=== PATIENT | female | born 2000 | race Two or more races ===

== ENCOUNTER 2021-01-29 12:23 | Emergency (ER) | payer OTHER, SELFPAY ==
[2021-01-29 12:39] VITALS: BP 125/72; PULSE 90; RESP 16; TEMP 36.3; O2SAT 99; BMI 19.1
--- NOTE | 2021-01-29 14:00 | ED_ITS ---
HPI - General Adult General Chief complaint: Abdominal Pain Stated complaint: abd pain, headache, fever, body ache Time Seen by Provider: 01/29/21 13:40 Source: patient Mode of arrival: ambulatory Limitations: no limitations History of Present Illness HPI narrative: 20-year-old female who presents emergency department for evaluation of headache, abdominal pain, nausea, vomiting body aches, and fatigue. Patient states she has been sick for approximately 2 days. She complains of epigastric pain which she describes as ?punching sensation and ?that is been constant in 8/10 at its worst. She states that she has had constant nausea with 2-4 episodes of vomiting per day, she denies any blood in the emesis. She states that she is having total body aches, she has had chills but no fever. She noted urinary frequency but no dysuria. She is also complaining of a headache, she points to the back of her neck when she is asked to describe the headache. She describes as a constant, throbbing sensation which is 6/10 at its worst. The patient has not been vaccinated for COVID-19. She is not aware of any known COVID-19 exposure. Related Data Previous Rx's Medication Instructions Recorded ondansetron 4 mg disintegrating 4 mg PO Q6-8H PRN #14 tab 01/29/21 tablet Allergies Allergy/AdvReac Type Severity Reaction Status Date / Time diphenhydramine Allergy Rash Verified 01/29/21 14:01 [From Benadryl] [facility] Past Medical History [facility] Narrative: Past medical history: G3, P3, she had a vaginal delivery 7 months prior. Past surgical history: None. Social history:. The patient smokes 1-2 cigarettes per day x1 year. She states that she drinks a pint of indoo.rs twice a week. She denies drug use. Social History Social History Alcohol intake: current Alcohol intake frequency: holidays/special occasions only Patient Tobacco Use Status: Never used Tobacco Use of substances other than those prescribed or required for medical reasons: No Advance Directives: Yes Advance Directives Information Provided: Yes Advance Directives on File: No Patient : No Physical Exam Vital Signs: Vital Signs: Last Vital Signs Temp 98.5 F 01/29/21 15:45 Pulse 72 01/29/21 15:45 Resp 16 01/29/21 15:45 BP 105/61 01/29/21 15:45 Pulse Ox 98 01/29/21 15:45 Body Mass Index 19.1 HENMT: Head: Yes normal to inspection, Yes normocephalic and Yes atraumatic Ears: external ears normal General nose exam: Normal external nose present Face and sinus: Yes normal facial exam Mouth: Normal oral and palatal mucosa present Throat: Yes posterior oropharynx normal Eyes: General: appearance normal, both eyes and all related structures Pupils: Equal, round and reactive pupils present Neck: Neck: Yes normal visual inspection, Yes no lymphadenopathy, Yes trachea midline and Yes supple Chest: Chest palpation & inspection: normal inspection of the chest and normal palpation of entire chest wall Resp: Effort & Inspection: normal respiratory effort and able to speak in complete sentences Auscultation: clear to auscultation bilaterally Cardio: Rate: regular rate Rhythm: regular rhythm Heart sounds: S1 normal heart sound present, S2 normal heart sound present and no murmurs GI: Inspection: Yes normal to inspection Palpation (GI): Soft to palpation, Tenderness to palpation present (GI) in the epigastrum (Moderate) and no guarding Auscultation: normal bowel sounds : General: Yes no CVA tenderness Back/Spine/Pelvis: Back: no CVA tenderness Skin: General skin exam: no rashes or lesions noted Neuro: Cranial nerves: Yes CN's II-XII intact bilaterally and Yes Equal, round and reactive pupils present Cognition (Neuro): normal cognition Motor exam (neuro): 5/5 motor strength present throughout Extrem: General: Yes normal to inspection Psych: Appearance: grossly normal Speech and movement: Normal speech and movement present Affect: normal affect Attitude: cooperative Thought process: Normal thought process present Thought content: Normal thought content present Course Course Course Narrative: 20-year-old female who presents emergency department for evaluation of headache, abdominal pain, nausea, vomiting, body aches fatigue and dysuria x2 days. Patient's initial vital signs were normal. Physical examination revealed moderate epigastric pain otherwise unremarkable. Patient's presentation is consistent with a viral syndrome. I did order laboratory evaluation to include CBC, CMP, lipase, urinalysis, urine , COVID-19 test. Patient was ordered to get Toradol 30 mg IV for pain, Zofran 4 mg IV for her nausea vomiting and normal saline IV x1 L. 1609: The patient's laboratory evaluation was unremarkable. Urinalysis was negative. COVID-19 test was negative. This time, I suspect patient has acute viral illness. The patient has only been sick for 2 days and COVID-19 is still a possibility and I did discuss this with her. The patient will be discharged home with verbal and printed instructions. She was advised to self isolate for 7 days. Medical Decision Making Lab Data Result diagrams: 01/29/21 14:33 01/29/21 14:33 Labs: Lab Results 01/29/21 01/29/21 01/29/21 Range/Units 14:17 14:27 14:28 WBC (4.8-10.8) X10*3/uL RBC (4.20-5.50) X10*6/uL Hgb (12.0-16.0) g/dl Hct (37-47) % MCV (80-98) fL MCH (27.0-33.0) pg MCHC (31.0-35.0) g/dl RDW (11.0-16.0) % Plt Count (160-400) X10*3/uL MPV (9.4-12.3) fL Immature Gran % (Auto) (0.0-0.4) % Neut % (Auto) (45-73) % Lymph % (Auto) (20-40) % [place] % (Auto) (2-11) % Eos % (Auto) (0-4) % Baso % (Auto) (0-2) % Lymph # (Auto) (1.2-4.9) X10*3/uL [place] # (Auto) (0.1-1.2) X10*3/uL Eos # (Auto) (0.0-0.4) X10*3/uL Baso # (Auto) (0.0-0.2) X10*3/uL Abs Immat Gran (auto) (0.00-0.03) X10*3/uL Absolute Neuts (auto) (2.0-8.3) X10*3/uL Absolute Nucleated RBC (0.0-0.012) X10*3/uL Nucleated RBC % (auto) (0.0-0.2) /100WBC Sodium (135-145) mmol/L Potassium (3.3-5.1) mmol/L Chloride (96-108) mmol/L Carbon Dioxide (22-29) mmol/L Anion Gap (12-20) BUN (9-16) mg/dL Creatinine (0.5-1.4) mg/dL Estim Creat Clear Calc Estimated GFR Random Glucose (60-115) mg/dL Calcium (8.4-10.2) mg/dL Total Bilirubin (0.0-1.0) mg/dL AST (5-31) U/L ALT (0-31) U/L Alkaline Phosphatase (39-117) U/L Total Protein (6.5-8.0) g/dL Albumin (3.5-5.0) g/dL Lipase (8-78) U/L Urine Color YELLOW Urine Appearance HAZY Urine pH 7.5 (5.0-8.0) Ur Specific [place] 1.010 (1.005-1.025) Urine Protein 2+ H (NEG-TRACE) MG/DL Urine Glucose (UA) NEG (NEG) MG/DL Urine Ketones 5 (NEG) MG/DL Urine Blood 3+ H (NEG) Urine Nitrite NEG (NEG) Ur Leukocyte Esterase NEG (NEG) Urine RBC 76-150 H (0) /HPF Urine WBC 0-2 (0-4) /HPF Ur Squamous Epith Cells 4+ /LPF Urine Bacteria TRACE /LPF Urine Mucus 1+ /LPF Urine Test NEGATIVE (NEGATIVE) COVID-19 (HUSEYIN) Negative (Negative) COVID-19 Clin Com See Note 01/29/21 01/29/21 01/29/21 Range/Units 14:33 14:33 14:33 WBC 6.8 (4.8-10.8) X10*3/uL RBC 4.57 (4.20-5.50) X10*6/uL Hgb 12.2 (12.0-16.0) g/dl Hct 37.2 (37-47) % MCV 81.4 (80-98) fL MCH 26.7 L (27.0-33.0) pg MCHC 32.8 (31.0-35.0) g/dl RDW 12.1 (11.0-16.0) % Plt Count 232 (160-400) X10*3/uL MPV 10.4 (9.4-12.3) fL Immature Gran % (Auto) 0.3 (0.0-0.4) % Neut % (Auto) 77.3 H (45-73) % Lymph % (Auto) 13.7 L (20-40) % [place] % (Auto) 6.8 (2-11) % Eos % (Auto) 1.8 (0-4) % Baso % (Auto) 0.1 (0-2) % Lymph # (Auto) 0.9 L (1.2-4.9) X10*3/uL [place] # (Auto) 0.5 (0.1-1.2) X10*3/uL Eos # (Auto) 0.1 (0.0-0.4) X10*3/uL Baso # (Auto) 0.0 (0.0-0.2) X10*3/uL Abs Immat Gran (auto) 0.02 (0.00-0.03) X10*3/uL Absolute Neuts (auto) 5.2 (2.0-8.3) X10*3/uL Absolute Nucleated RBC 0.000 (0.0-0.012) X10*3/uL Nucleated RBC % (auto) 0.0 (0.0-0.2) /100WBC Sodium 139 (135-145) mmol/L Potassium 4.1 (3.3-5.1) mmol/L Chloride 105 (96-108) mmol/L Carbon Dioxide 23 (22-29) mmol/L Anion Gap 15 (12-20) BUN 11 (9-16) mg/dL Creatinine 0.79 (0.5-1.4) mg/dL Estim Creat Clear Calc 92.0 Estimated GFR > 60 Random Glucose 101 (60-115) mg/dL Calcium 9.3 (8.4-10.2) mg/dL Total Bilirubin 0.9 (0.0-1.0) mg/dL AST 17 (5-31) U/L ALT 8 (0-31) U/L Alkaline Phosphatase 60 (39-117) U/L Total Protein 7.4 (6.5-8.0) g/dL Albumin 4.5 (3.5-5.0) g/dL Lipase 18 (8-78) U/L Urine Color Urine Appearance Urine pH (5.0-8.0) Ur Specific [place] (1.005-1.025) Urine Protein (NEG-TRACE) MG/DL Urine Glucose (UA) (NEG) MG/DL Urine Ketones (NEG) MG/DL Urine Blood (NEG) Urine Nitrite (NEG) Ur Leukocyte Esterase (NEG) Urine RBC (0) /HPF Urine WBC (0-4) /HPF Ur Squamous Epith Cells /LPF Urine Bacteria /LPF Urine Mucus /LPF Urine Test (NEGATIVE) COVID-19 (HUSEYIN) (Negative) COVID-19 Clin Com Discharge Plan Discharge Clinical Impression: Gastritis, Viral illness Patient Disposition: Home, Self-Care Instructions: Viral Syndrome (ED) Additional Instructions: Your blood work today was normal. Your COVID-19 test was negative. Sometimes, the COVID-19 test can be falsely negative especially if you have only been sick for 2 days. Usually the test is more diagnostic if your sick for at least 4-7 days. I recommend that you stay home for at least 7 days and self isolate, if you continue to have symptoms after 7 days or your symptoms get worse then you need a repeat COVID-19 test. If you developed signs of pneumonia such as fever, shaking chills, chest pain that is worse with breathing, shortness of breath shortness of breath when he exerts herself then you should return to the emergency department or see your doctor for re-evaluation Take ibuprofen 200 mg pills, 3 pills every 6 hours as needed for pain. Take Tylenol (acetaminophen) 500 mg pills, 2 pills every 4 to 6 hours as needed for pain. Take Zofran ODT 4 mg pills, 1 pill dissolved in your mouth every 8 hours as needed for nausea and vomiting. Follow-up with your doctor in 2 days. Please return to the emergency department if your symptoms get worse or if you develop any symptoms that are concerning to you. Prescriptions: New ondansetron 4 mg tablet,disintegrating 4 mg PO Q6-8H PRN (Reason: nausea and vomiting) Qty: 14 RF: 0
[2021-01-29 14:20] VITALS: BP 110/73; PULSE 76; RESP 14; TEMP 36.9; O2SAT 95
[2021-01-29 14:37] LABS: MANUAL DIFF FLAG NO
[2021-01-29 14:40] LABS: Basophils Percent Auto 0.1 % (0-2); Eosinophils Absolute Auto 0.1 X10*3/uL (0.0-0.4); Eosinophils Percent Auto 1.8 % (0-4); Hematocrit 37.2 % (37-47); Hemoglobin 12.2 g/dl (12.0-16.0); Imm Gran Abs Auto 0.02 X10*3/uL (0.00-0.03); Imm Gran Pct Auto 0.3 % (0.0-0.4); Lymphocytes Absolute Auto 0.9 X10*3/uL (1.2-4.9); Lymphocytes Percent Auto 13.7 % (20-40); Mean Corpuscular HGB Conc 32.8 g/dl (31.0-35.0); Mean Corpuscular Hemoglobin 26.7 pg (27.0-33.0); Mean Corpuscular Volume 81.4 fL (80-98); Mean Platelet Volume 10.4 fL (9.4-12.3); Monocytes Absolute Auto 0.5 X10*3/uL (0.1-1.2); Monocytes Percent Auto 6.8 % (2-11); Neutrophils Absolute Auto 5.2 X10*3/uL (2.0-8.3); Neutrophils Percent Auto 77.3 % (45-73); Platelet Count 232 X10*3/uL (160-400); Red Blood Count 4.57 X10*6/uL (4.20-5.50); Red Cell Distribution Width 12.1 % (11.0-16.0); White Blood Count 6.8 X10*3/uL (4.8-10.8)
[2021-01-29 14:42] LABS: Appearance Urine HAZY; Color Urine YELLOW; Glucose Urine UA NEG (NEG); Leukocyte Esterase Urine NEG (NEG); Nitrite Urine NEG (NEG); PH 7.5 (5.0-8.0); UACC Culture Trigger NO; Urine Blood 3+ (NEG); Urine Ketones 5 MG/DL (NEG); Urine Protein 2+ MG/DL (NEG-TRACE)
[2021-01-29 14:43] LABS: UPreg QC Valid YES; Urine Pregnancy NEGATIVE (NEGATIVE)
[2021-01-29] MEDS: 0.9 % Sodium Chloride 1,000 ML 999 ML IV (14:46)
[2021-01-29] MEDS: ondansetron HCL 4 MG/2 ML VIAL IVPUSH (14:48)
[2021-01-29 14:49] LABS: WBC Urine 0-2 /HPF (0-4)
[2021-01-29 14:50] LABS: Bacteria Urine TRACE /LPF; Mucus Urine 1+ /LPF; Squamous Epithelial Cell Urine 4+ /LPF
[2021-01-29] MEDS: Ketorolac Tromethamine 15 MG/ML VIAL 30 MG IVPUSH (14:52)
[2021-01-29 14:59] LABS: COVID-19 Test Negative (Negative)
[2021-01-29 15:02] LABS: Lipase 18 U/L (8-78)
[2021-01-29 15:08] LABS: Alanine Aminotransferase 8 U/L (0-31); Albumin Level 4.5 g/dL (3.5-5.0); Alkaline Phosphatase 60 U/L (39-117); Anion Gap 15 (12-20); Aspartate Amino Transferase 17 U/L (5-31); Bilirubin Total 0.9 mg/dL (0.0-1.0); Blood Urea Nitrogen 11 mg/dL (9-16); Calcium 9.3 mg/dL (8.4-10.2); Carbon Dioxide 23 mmol/L (22-29); Chloride 105 mmol/L (96-108); Estimated Glomerular Filt Rate > 60; Glucose Random 101 mg/dL (60-115); Potassium 4.1 mmol/L (3.3-5.1); Sodium 139 mmol/L (135-145); Total Protein 7.4 g/dL (6.5-8.0)
[2021-01-29 15:45] VITALS: BP 105/61; PULSE 72; RESP 16; TEMP 36.9; O2SAT 98
--- NOTE | 2021-01-29 16:40 | PC.NURSE ---
Pt alert and oriented x4, calm and cooperative. Pt denies pain, denies N/V. Pt tolerated IV meds well. Pt educated on dc and stated an understanding. IV removed. Vitals stable. pt ambulated out of ER to private car.
== END 2021-01-29 16:41 | disposition home or self-care (01) ==
PROVIDERS: Emergency Provider Emergency Medicine Emergency Medical Services
DX: K29.70 Gastritis, unspecified, without bleeding (principal); B34.9 Viral infection, unspecified; R51.9 Headache, unspecified; M79.10 Myalgia, unspecified site; Z20.822 Contact with and (suspected) exposure to COVID-19
CPT/HCPCS: 36415; 80053; 81001; 81025; 83690; 85025; 87635; 96361; 96374; 96375; 99284; 99285; J1885; J2405

== ENCOUNTER 2022-04-03 13:53 | Emergency (ER) | payer SELFPAY ==
--- NOTE | ~2022-04-03 | US_ITS ---
EXAMINATION: ULTRASOUND OB LIMITED CLINICAL INFORMATION: Abdominal pain. Patient is 22 weeks . COMPARISON: None TECHNIQUE: Limited OB ultrasound FINDINGS: There is a single viable intrauterine fetus in cephalic position. heart rate is 135 bpm. Amniotic fluid volume is subjectively normal. There is an anterior placenta that is normal-appearing. The cervix appears closed. Maternal ovary/pelvis is not imaged. US/US OB limited IMPRESSION: Single viable intrauterine in cephalic position. Normal-appearing anterior placenta.
--- NOTE | 2022-04-03 14:04 | ED.ABDPAIN ---
HPI - Abdominal Pain General Chief Complaint: Abdominal Pain Stated Complaint: abd pain Related Data Previous Rx's Medication Instructions Recorded ondansetron 4 mg disintegrating 4 mg PO Q6-8H PRN nausea and 01/29/21 tablet vomiting #14 tabs Allergies Allergy/AdvReac Type Severity Reaction Status Date / Time diphenhydramine Allergy Rash Verified 01/29/21 14:01 [From Benadryl] [facility] Social History Social History Alcohol intake: current Alcohol intake frequency: holidays/special occasions only Patient Tobacco Use Status: Never used Tobacco Advance Directives: No Advance Directives Information Provided: No Physical Exam ED Vital Signs: BMI result Body Mass Index 21.6 Course Course Course Narrative: This is a rapid medical exam. Deferred additional HPI, ROS, PE to primary provider. 21 yo female healthy here with lower abdominal cramping x weeks. NO vaginal bleeding. Currently 22 weeks , CYNDI 08/06. Moved [facility] from [facility]. No care. . Will need labs, UA, FHT, US. VSS Medical Decision Making Lab Data Result Diagrams: 04/03/22 14:35 04/03/22 14:35 Labs: Lab Results 04/03/22 04/03/22 04/03/22 Range/Units 14:35 14:35 14:35 WBC 9.9 (4.8-10.8) X10*3/uL RBC 3.66 L (4.20-5.50) X10*6/uL Hgb 10.3 L (12.0-16.0) g/dl Hct 30.9 L (37.0-47.0) % MCV 84.4 (80.0-98.0) fL MCH 28.1 (27.0-33.0) pg MCHC 33.3 (31.0-35.0) g/dl RDW 12.1 (11.0-16.0) % Plt Count 239 (160-400) X10*3/uL MPV 10.3 (9.4-12.3) fL Immature Gran % (Auto) 0.5 H (0.0-0.4) % Neut % (Auto) 74.7 H (45-73) % Lymph % (Auto) 16.3 L (20-40) % [place] % (Auto) 5.2 (2-11) % Eos % (Auto) 3.0 (0-4) % Baso % (Auto) 0.3 (0-2) % Lymph # (Auto) 1.6 (1.2-4.9) X10*3/uL [place] # (Auto) 0.5 (0.1-1.2) X10*3/uL Eos # (Auto) 0.3 (0.0-0.4) X10*3/uL Baso # (Auto) 0.0 (0.0-0.2) X10*3/uL Abs Immat Gran (auto) 0.05 H (0.00-0.03) X10*3/uL Absolute Neuts (auto) 7.4 (2.0-8.3) x10*3/uL Absolute Nucleated RBC 0.000 (0.0-0.012) X10*3/uL Nucleated RBC % (auto) 0.0 (0.0-0.2) /100WBC Sodium 137 (135-145) mmol/L Potassium 4.1 (3.3-5.1) mmol/L Chloride 108 (96-108) mmol/L Carbon Dioxide 22 (22-29) mmol/L Anion Gap 11 L (12-20) BUN 7 L (9-16) mg/dL Creatinine 0.60 (0.5-1.4) mg/dL Estim Creat Clear Calc 131.2 Estimated GFR > 60 Random Glucose 79 (60-115) mg/dL Calcium 8.9 (8.4-10.2) mg/dL Total Bilirubin 0.3 (0.0-1.0) mg/dL Direct Bilirubin < 0.2 (0.0-0.5) mg/dL AST 13 (5-31) U/L ALT 6 (0-31) U/L Alkaline Phosphatase 62 (39-117) U/L Total Protein 6.4 L (6.5-8.0) g/dL Albumin 3.6 (3.5-5.0) g/dL Beta HCG, Quant 40606 mIU/mL COVID-19 (HUSEYIN) Negative (Negative) COVID-19 Clin Com See Note Discharge Plan Discharge Clinical Impression: Abdominal pain Patient Disposition: Elopement Prescriptions: No Action ondansetron 4 mg tablet,disintegrating 4 mg PO Q6-8H PRN (Reason: nausea and vomiting) Qty: 14 0RF Interventions: ED Discharge Assessment Last Done: 04/03/22 20:28 Discharge Date/Time: 04/03/22 20:33
[2022-04-03 14:05] VITALS: BP 98/32; PULSE 82; RESP 18; TEMP 36.9; O2SAT 98; BMI 21.6
[2022-04-03 14:40] LABS: MANUAL DIFF FLAG NO
[2022-04-03 14:49] LABS: Basophils Percent Auto 0.3 % (0-2); Eosinophils Absolute Auto 0.3 X10*3/uL (0.0-0.4); Hematocrit 30.9 % (37.0-47.0); Hemoglobin 10.3 g/dl (12.0-16.0); Imm Gran Abs Auto 0.05 X10*3/uL (0.00-0.03); Imm Gran Pct Auto 0.5 % (0.0-0.4); Lymphocytes Absolute Auto 1.6 X10*3/uL (1.2-4.9); Lymphocytes Percent Auto 16.3 % (20-40); Mean Corpuscular HGB Conc 33.3 g/dl (31.0-35.0); Mean Corpuscular Hemoglobin 28.1 pg (27.0-33.0); Mean Corpuscular Volume 84.4 fL (80.0-98.0); Mean Platelet Volume 10.3 fL (9.4-12.3); Monocytes Absolute Auto 0.5 X10*3/uL (0.1-1.2); Monocytes Percent Auto 5.2 % (2-11); Neutrophils Absolute Auto 7.4 x10*3/uL (2.0-8.3); Neutrophils Percent Auto 74.7 % (45-73); Platelet Count 239 X10*3/uL (160-400); Red Blood Count 3.66 X10*6/uL (4.20-5.50); Red Cell Distribution Width 12.1 % (11.0-16.0); White Blood Count 9.9 X10*3/uL (4.8-10.8)
[2022-04-03 14:55] LABS: COVID-19 Test Negative (Negative); IDNOW Serial# 9DB6401D
[2022-04-03 16:08] LABS: Alanine Aminotransferase 6 U/L (0-31); Albumin Level 3.6 g/dL (3.5-5.0); Alkaline Phosphatase 62 U/L (39-117); Anion Gap 11 (12-20); Aspartate Amino Transferase 13 U/L (5-31); Bilirubin Direct < 0.2 mg/dL (0.0-0.5); Bilirubin Total 0.3 mg/dL (0.0-1.0); Blood Urea Nitrogen 7 mg/dL (9-16); Calcium 8.9 mg/dL (8.4-10.2); Carbon Dioxide 22 mmol/L (22-29); Chloride 108 mmol/L (96-108); Creatinine Clr Calc Pharmacy 131.2; Estimated Glomerular Filt Rate > 60; Glucose Random 79 mg/dL (60-115); Potassium 4.1 mmol/L (3.3-5.1); Sodium 137 mmol/L (135-145); Total Protein 6.4 g/dL (6.5-8.0)
[2022-04-03 16:40] LABS: HCG Quantitative 15687 mIU/mL
--- NOTE | 2022-04-03 20:16 | PC.NURSE ---
pt called to triage for re-assessment. no answer 2016
== END 2022-04-03 20:33 | disposition left against medical advice (07) ==
PROVIDERS: Nurse Practitioner Family; Emergency Provider Emergency Medicine
DX: O26.892 Other specified pregnancy related conditions, second trimester (principal); R10.9 Unspecified abdominal pain; Z3A.22 22 weeks gestation of pregnancy; Z20.822 Contact with and (suspected) exposure to COVID-19
CPT/HCPCS: 76815; 80048; 80076; 84702; 85025; 87635; 99282; 99284

== ENCOUNTER 2022-05-15 11:21 | Emergency (ER) | payer MEDICAID, SELFPAY ==
[2022-05-15 11:28] VITALS: BP 102/53; PULSE 81; RESP 14; TEMP 36.9; O2SAT 99
--- NOTE | 2022-05-15 11:30 | MHC.EDTECH ---
@11:30AM CALL PLACED TO [facility] PT TX LINE FOR GLOBAL REGULATORY LEAD @ [facility] ACNO REQUEST BARBARA ANSWERS, TAKES PT INFO, THEN STATES SHE WILL HAVE A GLOBAL REGULATORY LEAD CALL US BACK
--- NOTE | 2022-05-15 11:38 | PC.NURSE ---
HR strong and regular from 140s-150s
--- NOTE | 2022-05-15 11:39 | MHC.EDTECH ---
@[id number] [facility] CALLED ABOUT THIS PT FOR IMPENDING TRANSPORT FOR THIS PT DAVID ANSWERS AND SAYS HE WILL SEND AN ALS WHEN THIS PT IS ACCEPTED @[id number] BARBARA FROM THE [facility] PT TX LINE CALLS BACK FOR RACHAEL CANO TAKES OVER CALL RIGHT AWAY
[2022-05-15 11:43] LABS: MANUAL DIFF FLAG NO
--- NOTE | 2022-05-15 11:46 | ED.GENADULT ---
HPI - General Adult General Chief complaint: General Medical <JEFFREY Saul - Last Filed: 05/15/22 12:34> Stated complaint: water broke <JEFFREY Saul - Last Filed: 05/15/22 12:34> Time Seen by Provider: 05/15/22 11:30 <JEFFREY Saul - Last Filed: 05/15/22 12:34> Source: patient <JEFFREY Saul - Last Filed: 05/15/22 12:34> Mode of arrival: ambulatory <JEFFREY Saul - Last Filed: 05/15/22 12:34> Limitations: no limitations <JEFFREY Saul - Last Filed: 05/15/22 12:34> History of Present Illness HPI narrative: 21 yo female currently 30 weeks gestation with CYNDI of 07/05/22 presents to the ER for evaluation after her water broke spontaneously this morning at 11:00. She states she felt a contraction and then she felt leakage of amniotic fluid. It soaked her clothing. She came to the ER for further evaluation. She reports some increased abdominal pressure. She denies any active contractions. She is from [place] and is in the area visiting. She did not have full care due to lack of insurance. She states she last had an ultrasound done in February, was a normal growth scan. She reports history of several labors, her 6-year-old, 4-year-old, 2-year-old were all delivered between 32 and 34 weeks gestation. She reports no prolonged NICU stays or other complications. She denies any history of preeclampsia. No fevers. She still complains of amniotic fluid leaking. <JEFFREY Saul - Last Filed: 05/15/22 12:34> MD complaint: Water broke <JEFFREY Saul - Last Filed: 05/15/22 12:34> Onset (ago): minute(s) (30) <JEFFREY Saul - Last Filed: 05/15/22 12:34> Radiation: non-radiation <JEFFREY Saul - Last Filed: 05/15/22 12:34> Severity: mild <JEFFREY Saul - Last Filed: 05/15/22 12:34> Severity scale (1-10): 3 <JEFFREY Saul - Last Filed: 05/15/22 12:34> Quality: dull <JEFFREY Saul - Last Filed: 05/15/22 12:34> Pain Consistency: intermittent <JEFFREY Saul Last Filed: 05/15/22 12:34> Relieving factors: none <JEFFREY Saul Last Filed: 05/15/22 12:34> Exacerbating factors: none <JEFFREY Saul - Last Filed: 05/15/22 12:34> Associated symptoms: denies other symptoms <JEFFREY Saul - Last Filed: 05/15/22 12:34> Treatments prior to arrival: none <JEFFREY Saul Last Filed: 05/15/22 12:34> Related Data Home medications: Previous Rx's Medication Instructions Recorded ondansetron 4 mg disintegrating 4 mg PO Q6-8H PRN nausea and 01/29/21 tablet vomiting #14 tabs <JEFFREY Saul - Last Filed: 05/15/22 12:34> Allergies/adverse reactions: Allergies Allergy/AdvReac Type Severity Reaction Status Date / Time diphenhydramine Allergy Rash Verified 01/29/21 14:01 [From Benadryl] <JEFFREY Saul - Last Filed: 05/15/22 12:34> Review of Systems Review of Systems: Yes all other systems are reviewed and are negative <JEFFREY Saul - Last Filed: 05/15/22 12:34> [facility] Social History Social History: Social History Alcohol intake: never Patient Tobacco Use Status: Never used Tobacco Smoked in Last 30 Days: No Use of substances other than those prescribed or required for medical reasons: No Advance Directives: No Patient : Yes <JEFFREY Saul Last Filed: 05/15/22 12:34> Physical Exam ED Vital Signs: Vital Signs - 24 hr 05/15/22 11:28 Temperature 98.5 F Pulse Rate 81 Respiratory Rate 14 Blood Pressure 102/53 L Pulse Oximetry 99 Oxygen Delivery Method Room Air BMI result Body Mass Index 20.0 <JEFFREY Saul - Last Filed: 05/15/22 12:34> Vital Signs - 24 hr 05/15/22 11:28 Temperature 98.5 F Pulse Rate 81 Respiratory Rate 14 Blood Pressure 102/53 L Pulse Oximetry 99 Oxygen Delivery Method Room Air BMI result Body Mass Index 20.0 <Graeme Alva MD - Last Filed: 05/15/22 13:28> Appearance: Alert. Oriented X3. No acute distress. Eyes: Pupils equal, round and reactive to light. ENT: Pharynx normal. Neck: Normal inspection. Neck supple. CVS: Normal heart rate and rhythm. Pulses normal. Respiratory: No respiratory distress. Breath sounds normal. Abdomen: gravid uterus to midpoint umbilicus and subziphoid. active +BS x4 Pelvic: Normal inspection of the external genitalia, on sterile speculum examination there is a moderate amount of clear yellow amniotic fluid present in the vaginal vault, cervix is not effaced, cervical os 0.5 cm dilated. Skin: Skin warm and dry. Normal skin color. Normal skin turgor. No rashes. Extremities: No lower extremity edema. Neuro: Oriented X 3. No motor deficit. No sensory deficit. <JEFFREY Saul - Last Filed: 05/15/22 12:34> Course Course Course Narrative: 21-year-old female presents to the ER after her water broke at 30 weeks gestation. Spoke with , [facility] - recommending immediate transfer to [facility]. FHT 140-150 Sterile speculum examination does not reveal any significant cervical dilatation or effacement. <JEFFREY Saul - Last Filed: 05/15/22 12:34> Reevaluation(s) Reevaluation #1: Spoke with doctor at 2 - recommending 12 g betamethasone injection, 2 g ampicillin, 4 g magnesium bolus, 20 mg of nifedipine for tocolysis, 1 gm PO azithromycin. Antibiotics and magnesium have been ordered. We do not have betamethasone or nifedipine on formulary. <JEFFREY Saul - Last Filed: 05/15/22 12:34> Reevaluation #2: 12 mg betamethasone given IM. transfer to [facility] now. US showing good movement, head down. HR 150s <JEFFREY Saul - Last Filed: 05/15/22 12:34> Medications Administered Discontinued Medications Generic Name Dose Route Start Last Admin Trade Name Freq PRN Reason Stop Dose Admin Azithromycin 1,000 mg 05/15/22 11:45 05/15/22 11:56 Azithromycin 500 Mg Tablet PO 05/15/22 11:46 1,000 mg ONCE ONE Administration Betamethasone Acet/Betameth SodPhos 12 mg 05/15/22 12:15 05/15/22 12:12 Betamet Acet/Betamet Na Ph 30 Mg/5 Ml Vial IM 05/15/22 12:16 12 mg ONCE ONE Administration Ampicillin Sodium 2 gm/ Sodium 100 mls @ 100 mls/hr 05/15/22 11:41 05/15/22 12:05 Chloride IV 05/15/22 12:40 100 mls/hr ONCE ONE Administration Magnesium Sulfate 4 gm in 50 mls @ 150 mls/hr 05/15/22 11:41 05/15/22 12:17 Magnesium Sulfate/H2o IV 05/15/22 12:00 Infused ONCE ONE Infusion <JEFFREY Saul - Last Filed: 05/15/22 12:34> Medications Administered Discontinued Medications Generic Name Dose Route Start Last Admin Trade Name Freq PRN Reason Stop Dose Admin Azithromycin 1,000 mg 05/15/22 11:45 05/15/22 11:56 Azithromycin 500 Mg Tablet PO 05/15/22 11:46 1,000 mg ONCE ONE Administration Betamethasone Acet/Betameth SodPhos 12 mg 05/15/22 12:15 05/15/22 12:12 Betamet Acet/Betamet Na Ph 30 Mg/5 Ml Vial IM 05/15/22 12:16 12 mg ONCE ONE Administration Ampicillin Sodium 2 gm/ Sodium 100 mls @ 100 mls/hr 05/15/22 11:41 05/15/22 12:05 Chloride IV 05/15/22 12:40 100 mls/hr ONCE ONE Administration Magnesium Sulfate 4 gm in 50 mls @ 150 mls/hr 05/15/22 11:41 05/15/22 12:17 Magnesium Sulfate/H2o IV 05/15/22 12:00 Infused ONCE ONE Infusion <Graeme Alva MD - Last Filed: 05/15/22 13:28> Medical Decision Making Differential Diagnosis Differential Diagnoses: The differential diagnosis associated with the presentation includes <JEFFREY Saul - Last Filed: 05/15/22 12:34> labor, active labor <JFEFREY Saul - Last Filed: 05/15/22 12:34> Admission/Observation Consideration of admission/observation: Escalation of care including admission/observation considered <JEFFREY Saul - Last Filed: 05/15/22 12:34> Consult Healthcare Provider Management of the patient was discussed with: Planning Lead <JEFFREY Saul - Last Filed: 05/15/22 12:34> Lab Data Result Diagrams: 05/15/22 11:36 05/15/22 11:36 <JEFFREY Saul - Last Filed: 05/15/22 12:34> Labs: Lab Results 05/15/22 05/15/22 05/15/22 Range/Units 11:29 11:36 11:36 WBC 13.8 H (4.8-10.8) X10*3/uL RBC 4.06 L (4.20-5.50) X10*6/uL Hgb 11.3 L (12.0-16.0) g/dl Hct 33.6 L (37.0-47.0) % MCV 82.8 (80.0-98.0) fL MCH 27.8 (27.0-33.0) pg MCHC 33.6 (31.0-35.0) g/dl RDW 11.8 (11.0-16.0) % Plt Count 256 (160-400) X10*3/uL MPV 10.3 (9.4-12.3) fL Immature Gran % (Auto) 1.1 H (0.0-0.4) % Neut % (Auto) 78.6 H (45-73) % Lymph % (Auto) 12.7 L (20-40) % [place] % (Auto) 5.5 (2-11) % Eos % (Auto) 1.7 (0-4) % Baso % (Auto) 0.4 (0-2) % Lymph # (Auto) 1.8 (1.2-4.9) X10*3/uL [place] # (Auto) 0.8 (0.1-1.2) X10*3/uL Eos # (Auto) 0.2 (0.0-0.4) X10*3/uL Baso # (Auto) 0.1 (0.0-0.2) X10*3/uL Abs Immat Gran (auto) 0.15 H (0.00-0.03) X10*3/uL Absolute Neuts (auto) 10.8 H (2.0-8.3) x10*3/uL Absolute Nucleated RBC 0.000 (0.0-0.012) X10*3/uL Nucleated RBC % (auto) 0.0 (0.0-0.2) /100WBC Sodium 136 (135-145) mmol/L Potassium 3.8 (3.3-5.1) mmol/L Chloride 106 (96-108) mmol/L Carbon Dioxide 21 L (22-29) mmol/L Anion Gap 13 (12-20) BUN 4 L (9-16) mg/dL Creatinine 0.57 (0.5-1.4) mg/dL Estim Creat Clear Calc 131.8 Estimated GFR > 60 Random Glucose 86 (60-115) mg/dL Calcium 8.9 (8.4-10.2) mg/dL Total Bilirubin 0.2 (0.0-1.0) mg/dL AST 12 (5-31) U/L ALT 7 (0-31) U/L Alkaline Phosphatase 90 (39-117) U/L Total Protein 6.7 (6.5-8.0) g/dL Albumin 3.7 (3.5-5.0) g/dL COVID-19 (HUSEYIN) Negative (Negative) COVID-19 Clin Com See Note <JEFFREY Saul - Last Filed: 05/15/22 12:34> Lab Results 05/15/22 05/15/22 05/15/22 Range/Units 11:29 11:36 11:36 WBC 13.8 H (4.8-10.8) X10*3/uL RBC 4.06 L (4.20-5.50) X10*6/uL Hgb 11.3 L (12.0-16.0) g/dl Hct 33.6 L (37.0-47.0) % MCV 82.8 (80.0-98.0) fL MCH 27.8 (27.0-33.0) pg MCHC 33.6 (31.0-35.0) g/dl RDW 11.8 (11.0-16.0) % Plt Count 256 (160-400) X10*3/uL MPV 10.3 (9.4-12.3) fL Immature Gran % (Auto) 1.1 H (0.0-0.4) % Neut % (Auto) 78.6 H (45-73) % Lymph % (Auto) 12.7 L (20-40) % [place] % (Auto) 5.5 (2-11) % Eos % (Auto) 1.7 (0-4) % Baso % (Auto) 0.4 (0-2) % Lymph # (Auto) 1.8 (1.2-4.9) X10*3/uL [place] # (Auto) 0.8 (0.1-1.2) X10*3/uL Eos # (Auto) 0.2 (0.0-0.4) X10*3/uL Baso # (Auto) 0.1 (0.0-0.2) X10*3/uL Abs Immat Gran (auto) 0.15 H (0.00-0.03) X10*3/uL Absolute Neuts (auto) 10.8 H (2.0-8.3) x10*3/uL Absolute Nucleated RBC 0.000 (0.0-0.012) X10*3/uL Nucleated RBC % (auto) 0.0 (0.0-0.2) /100WBC Sodium 136 (135-145) mmol/L Potassium 3.8 (3.3-5.1) mmol/L Chloride 106 (96-108) mmol/L Carbon Dioxide 21 L (22-29) mmol/L Anion Gap 13 (12-20) BUN 4 L (9-16) mg/dL Creatinine 0.57 (0.5-1.4) mg/dL Estim Creat Clear Calc 131.8 Estimated GFR > 60 Random Glucose 86 (60-115) mg/dL Calcium 8.9 (8.4-10.2) mg/dL Total Bilirubin 0.2 (0.0-1.0) mg/dL AST 12 (5-31) U/L ALT 7 (0-31) U/L Alkaline Phosphatase 90 (39-117) U/L Total Protein 6.7 (6.5-8.0) g/dL Albumin 3.7 (3.5-5.0) g/dL COVID-19 (HUSEYIN) Negative (Negative) COVID-19 Clin Com See Note <Graeme Alva MD - Last Filed: 05/15/22 13:28> Independent Interpretation I performed an independent interpretation of an: Ultrasound <JEFFREY Saul - Last Filed: 05/15/22 12:34> Interpretation: bedside U/S showing head down, good movement, HR 140s <JEFFREY Saul - Last Filed: 05/15/22 12:34> Independent Historian Clinical information obtained from an independent historian. History obtained from or confirmed by: Friend <JEFFREY Saul - Last Filed: 05/15/22 12:34> Prescription Management I considered prescription management with: Other (mg+, abx, betamethasone) <JEFFREY Saul - Last Filed: 05/15/22 12:34> Social Determinants Patient?s care significantly limited by Social Determinants of Health including: Other Social Determinant of Health <JEFFREY Saul - Last Filed: 05/15/22 12:34> Attestation Attending Attestation: I reviewed [employer]/PA/Resident note, assessment and plan. I agree with the documentation, assessment and plan unless otherwise stated. Patient presented with some contractions as well as leaking of amniotic on arrival, patient was no acute distress. Was mildly gravid. She reports 30 weeks gestation with poor care. She had no active bleeding. Bedside ultrasound confirmed live intrauterine . Head was facing down. There were good movements and heart rate was approximately 140. Our OBGYN was contacted. We were unable to potentially deliver child so patient was transferred to [facility]. She was transported by ambulance. <Graeme Alva MD - Last Filed: 05/15/22 13:28> Critical Care Time Critical Care Time Critical Care Time: Yes <JEFFREY Saul - Last Filed: 05/15/22 12:34> Total Critical Care Time: 36 <JEFFREY Saul Last Filed: 05/15/22 12:34> Attestation: I have personally provided critical care time exclusive of time spent on separately billable procedures. Time includes review of radiology at bedside, discussion with consultants, and monitoring for potential decompensation. Intervention performed as documented. <JEFFREY Saul - Last Filed: 05/15/22 12:34> Discharge Plan Discharge Clinical Impression: labor <JEFFREY Saul - Last Filed: 05/15/22 12:34> Patient Disposition: [facility] <JEFFREY Saul - Last Filed: 05/15/22 12:34> Transfer Details: WE2 <JEFFREY Saul - Last Filed: 05/15/22 12:34> WE2 <Graeme Alva MD - Last Filed: 05/15/22 13:28> Prescriptions: No Action ondansetron 4 mg tablet,disintegrating 4 mg PO Q6-8H PRN (Reason: nausea and vomiting) Qty: 14 0RF <JEFFREY Saul - Last Filed: 05/15/22 12:34> Interventions: Acute Care Transfer Worksheet (ED) Last Done: 05/15/22 12:32 <JEFFREY Saul - Last Filed: 05/15/22 12:34> Discharge Date/Time: 05/15/22 12:34 <JEFFREY Saul - Last Filed: 05/15/22 12:34>
--- NOTE | 2022-05-15 11:49 | MHC.EDTECH ---
@1142AM [facility] CALLED AND TOLD THIS PT IS ACCEPTED DAVID ANSWERS AND SAYS HE WILL SEND THEM
--- NOTE | 2022-05-15 11:51 | MHC.EDTECH ---
@1151AM BARBARA FROM [facility] PT [place] LINE CALLS AND ASKS FOR PA RACHAEL CANO TAKES OVER CALL RIGHT AWAY
[2022-05-15 11:52] LABS: COVID-19 Test Negative (Negative); IDNOW Serial# 9DB6401D
--- NOTE | 2022-05-15 11:53 | MHC.EDTECH ---
[facility] HERE @ THIS TIME FOR TRANSPORT
[2022-05-15] MEDS: Magnesium Sulfate/H2O 4 GM/50 ML PIGGYBACK IV (11:56)
[2022-05-15] MEDS: Azithromycin 500 MG TABLET 1000 MG PO (11:56)
[2022-05-15 11:57] LABS: Basophils Absolute Auto 0.1 X10*3/uL (0.0-0.2); Basophils Percent Auto 0.4 % (0-2); Eosinophils Absolute Auto 0.2 X10*3/uL (0.0-0.4); Eosinophils Percent Auto 1.7 % (0-4); Hematocrit 33.6 % (37.0-47.0); Hemoglobin 11.3 g/dl (12.0-16.0); Imm Gran Abs Auto 0.15 X10*3/uL (0.00-0.03); Imm Gran Pct Auto 1.1 % (0.0-0.4); Lymphocytes Absolute Auto 1.8 X10*3/uL (1.2-4.9); Lymphocytes Percent Auto 12.7 % (20-40); Mean Corpuscular HGB Conc 33.6 g/dl (31.0-35.0); Mean Corpuscular Hemoglobin 27.8 pg (27.0-33.0); Mean Corpuscular Volume 82.8 fL (80.0-98.0); Mean Platelet Volume 10.3 fL (9.4-12.3); Monocytes Absolute Auto 0.8 X10*3/uL (0.1-1.2); Monocytes Percent Auto 5.5 % (2-11); Neutrophils Absolute Auto 10.8 x10*3/uL (2.0-8.3); Neutrophils Percent Auto 78.6 % (45-73); Platelet Count 256 X10*3/uL (160-400); Red Blood Count 4.06 X10*6/uL (4.20-5.50); Red Cell Distribution Width 11.8 % (11.0-16.0); White Blood Count 13.8 X10*3/uL (4.8-10.8)
[2022-05-15] MEDS: Ampicillin Sodium 2 GM in 0.9 % Sodium Chloride 100 ML IV (12:05)
--- NOTE | 2022-05-15 12:06 | MHC.EDTECH ---
@1205PM RACHAEL REQUESTS CALL OUT TO DR RICK OLIVIA ANSWERS AND STATES SHE WILL CALL SOON WITH ROOM ASSIGNMENT AND DR CABRERA FOR RACHAEL @1209PM NE CALLSS BACK AND GIVES ROOM ASSIGNMENT ROOM [id number]
[2022-05-15] MEDS: Betamet Acet/Betamet Na Ph 30 MG/5 ML VIAL 12 MG IM (12:12)
--- NOTE | 2022-05-15 12:24 | PC.NURSE ---
Report to Dirk at [facility] [place] and delivery.
[2022-05-15 12:44] LABS: Alanine Aminotransferase 7 U/L (0-31); Albumin Level 3.7 g/dL (3.5-5.0); Alkaline Phosphatase 90 U/L (39-117); Anion Gap 13 (12-20); Aspartate Amino Transferase 12 U/L (5-31); Bilirubin Total 0.2 mg/dL (0.0-1.0); Blood Urea Nitrogen 4 mg/dL (9-16); Calcium 8.9 mg/dL (8.4-10.2); Carbon Dioxide 21 mmol/L (22-29); Chloride 106 mmol/L (96-108); Creatinine Clr Calc Pharmacy 131.8; Estimated Glomerular Filt Rate > 60; Glucose Random 86 mg/dL (60-115); Potassium 3.8 mmol/L (3.3-5.1); Sodium 136 mmol/L (135-145); Total Protein 6.7 g/dL (6.5-8.0)
[2022-05-15 13:46] LABS: HCG Quantitative 16531 mIU/mL
== END 2022-05-15 12:34 | disposition short-term general hospital (02) ==
PROVIDERS: Physician Assistant; Emergency Provider Emergency Medicine
DX: O60.03 Preterm labor without delivery, third trimester (principal); O09.33 Supervision of pregnancy with insufficient antenatal care, third trimester; Z3A.30 30 weeks gestation of pregnancy; Z20.822 Contact with and (suspected) exposure to COVID-19
CPT/HCPCS: 36415; 80053; 84702; 85025; 87635; 96365; 96372; 96375; 99285; J0290; J0702; J3475